=== PATIENT | female | born 1995 | race Caucasian/White ===

== ENCOUNTER 2017-07-27 03:44 | Emergency (ER) | payer OTHER ==
[~2017-07-27] VITALS: Ht 154.9 cm; Wt 81.6 kg
--- OUTSIDE RECORDS SUMMARY | 2017-07-27 03:53 | XMS REPORT ---
Author Author SANGITA ALBERT [facility] eClinicalWorks Address Unknown Phone Unavailable Care Team Providers Care Boiler House Operator Name Role Phone SANGITA ALBERT CP Unavailable Allergies No Known Allergies Problems Problem Type Condition Code Onset Dates Condition Status Problem Scanty or infrequent menstruation 626.1 Active Problem Screening examination for venereal disease V74.5 Active Problem General counseling for prescription of oral contraceptives V25.01 Active Problem Cough 786.2 Active Medications Medication Code System Code Instructions Start Date End Date Status Dosage Sprintec [address] [facility] [address]-87 0.25-35 MG-MCG Orally Once a day 1 tablet Results No Known Results Summary Purpose eClinicalWorks Submission
--- OUTSIDE RECORDS SUMMARY | 2017-07-27 03:53 | XMS REPORT ---
Author SRIKANTH Bird Organization eClinical[employer] Address Unknown Phone Unavailable Care Team Providers [facility] Associate Name Role Phone SRIKANTH PINZON CP Unavailable Allergies, Adverse Reactions, Alerts Substance Reaction Event Type Sulfamethoxazole-Trimethoprim hives Drug Allergy Problems Problem Type Condition Code Onset Dates Condition Status Problem General counseling for prescription of oral contraceptives V25.01 Active Problem Scanty or infrequent menstruation 626.1 Active Problem On Depo-Provera for contraception Z30.40 Active Assessment Encounter for BCP ( control pills) initial prescription Z30.011 Active Problem Screening examination for venereal disease V74.5 Active Problem Cough 786.2 Active Medications Medication Code System Code Instructions Start Date End Date Status Dosage Depo-Provera [facility] [address]-20 150 MG/ML Intramuscular not defined Ortho Tri-Cyclen (28) [facility] [address]-08 0.18/0.215/0.25 MG-35 MCG Orally Once a day Apr 03, 2016 1 tablet Procedures Procedure Coding System Code Date Office Visit, Est Pt., Level 3 CPT-4 41767 Apr 03, 2016 Vital Signs Date/Time: Apr 03, 2016 Cardiac Monitoring Heart Rate 80 bpm Weight 188 lbs Height 61 in Wt Percentile 96.24 % BMI 35.52 Index Blood Pressure Diastolic 80 mmHg Blood Pressure Systolic 112 mmHg BMIPercentile 97.66 % Results No Known Results Summary Purpose eClinicalWorks Submission
[2017-07-27] MEDS ORDERED: AMOX500C2 PO (04:43)
--- NOTE | 2017-07-27 04:43 | ED EENT ---
History of Present Illness General Chief Complaint: Dental Problems/Pain Stated Complaint: DENTAL PAIN Nursing Triage Note: PT PRESENTS TO ER WITH COMPLAINT OF DENTAL PAIN. STATES THE IB PROFEN AND ORAJEL ARE NOT WORKING. UNABLE TO GET IN TO DENTIST. Source: patient Exam Limitations: no limitations History of Present Illness Date Seen by Provider: Jul 27, 2017 Time Seen by Provider: 04:34 Initial Comments Patient presents to ER by private conveyance with a chief complaint that 2 days now she's had progressively worsening pain in her front left tooth that has now radiated all over her upper left maxillary teeth. She's not having any purulence or blood. She has not had any trauma. She is not having any nausea or vomiting or difficulty swallowing fluids. She has a crown there that she thinks is getting crowded since her wisdom teeth are growing in. She [facility] the dentist [facility] and does not have an appointment yet. She has allergies to sulfa. She has been using Orajel which numbs of her mouth. Allergies and Home Medications Allergies Uncoded Allergies: SULFA (Allergy, Unknown, 07/27/17) Home Medications No Active Prescriptions or Reported Meds Patient Home Medication List Home Medication List Reviewed: Yes Review of Systems Constitutional: No chills, No diaphoresis Eyes: Denies Blindness, Denies Blurred Vision Ears: Denies Dizziness, Denies Pain Nose: denies clots, denies congestion Mouth: see HPI Throat: see HPI Respiratory: No cough, No short of breath Past Ddlaytw-Aqvjwm-Yhaybs Hx Patient Social History Alcohol Use: Denies Use Recreational Drug Use: No Smoking Status: Never a Smoker Recent Foreign Travel: No Contact w/Someone Who Travel: No Recent Infectious Disease Expo: No Recent Hopitalizations: No Immunizations Up To Date PED Vaccines UTD: Yes Seasonal Allergies Seasonal Allergies: No Surgeries History of Surgeries: No Respiratory History of Respiratory Disorde: No Cardiovascular History of Cardiac Disorders: No Neurological History of Neurological Disord: No Genitourinary History of Genitourinary Disor: No Gastrointestinal History of Gastrointestinal Di: No Musculoskeletal History of Musculoskeletal Dis: No Endocrine History of Endocrine Disorders: No HEENT History of HEENT Disorders: No Cancer History of Cancer: No Psychosocial History of Psychiatric Problem: No Integumentary History of Skin or Integumenta: No Blood Transfusions History of Blood Disorders: No Physical Exam Vital Signs Vital Signs - First Documented 07/27/17 04:14 Temp 97.0 Pulse 80 Resp 20 B/P (MAP) 117/75 (89) Pulse Ox 100 O2 Delivery Room Air General Appearance: WD/WN, no apparent distress Eyes: bilateral eye normal inspection, bilateral eye PERRL, bilateral eye EOMI Ears: bilateral ear auricle normal, bilateral ear canal normal, bilateral ear TM normal Nose: normal inspection, No active bleeding Mouth/Throat: other (she has a crown in her front 2 teeth. She does not have any evidence of an abscess and is only mildly tender after she just applied some Orajel. Gingivitis and dental caries present) Neck: non-tender, full range of motion, supple Cardiovascular: normal peripheral pulses, regular rate, rhythm Respiratory: no respiratory distress, no accessory muscle use Neurologic/Psychiatric: alert, oriented x 3 Progress/Results/Core Measures Results/Orders Vital Signs/I&O Vital Sign - Last 12Hours 07/27/17 04:14 Temp 97.0 Pulse 80 Resp 20 B/P (MAP) 117/75 (89) Pulse Ox 100 O2 Delivery Room Air Blood Pressure Mean: 89 Departure Impression Impression: Primary Impression: Dental caries Disposition: HOME, SELF-CARE Condition: Stable Departure-Patient Inst. Decision time for Depature: 04:42 Referrals: [facility] (PCP/Family) Primary Care Physician Patient Instructions: Dental Pain (DC) Add. Discharge Instructions: Use the Orajel as needed. Use ibuprofen 800 mg every 8 hours as needed for pain. You can also use Tylenol 1000 mg every 8 hours as needed for pain. 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 This morning call the dentist's office and get an appointment to be seen or dental pain. All discharge instructions reviewed with patient and/or family. Voiced understanding. Scripts Amoxicillin (Amoxicillin) 500 Mg Capsule 500 MG PO TID for 7 Days, #21 CAP 0 Refills Prov: LKAESHA PYLE 07/27/17 Copy Copies To 1: SANGITA ALBERT TITUS J Jul 27, 2017 04:43
[2017-07-27 04:46] VITALS: BP 117/75
== END 2017-07-27 04:46 | disposition home or self-care (01) ==
LOC: ER 03:49
DX: K02.9 Dental caries, unspecified (principal); Z88.2 Allergy status to sulfonamides
CPT/HCPCS: 99282

== ENCOUNTER 2018-07-11 17:17 | Emergency (ER) | payer OTHER ==
[~2018-07-11] VITALS: Ht 154.9 cm; Wt 71.2 kg
[~2018-07-11 17:17] MED LIST: AMOX500C2 PO
--- OUTSIDE RECORDS SUMMARY | 2018-07-11 17:21 | XMS REPORT ---
Author Author GARO SANDHU [facility] Address [address] [place] [address] Care Team Providers Care Department Coordinator Name Role Phone GARO SANDHU Unavailable PROBLEMS Type Condition ICD9-CM Code QXU94-[id number] Code Onset Dates Condition Status SNOMED Code Problem Obesity (BMI 35.0-39.9 without comorbidity) E66.9 Active 811482228 ALLERGIES Substance Reaction Event Type Date Status Sulfamethoxazole-Trimethoprim hives Drug Allergy Jun, Active ENCOUNTERS Encounter Location Date Diagnosis [place] [id number] [place] [address]- [phone] September, Nexplanon insertion Z30.017 [place] [address] [address] Jul, control counseling Z30.09 ; Routine screening for STI (sexually transmitted infection) Z11.3 and Vaginal discharge N89.8 [facility] [id number] [place] [phone] Jun, Dysuria R30.0 and Acute cystitis with hematuria N30.01 [place] [id number] [place] [address] 70383- 7596 Apr, Obesity (BMI 35.0-39.9 without comorbidity) E66.9 [place] [id number] [place] [address] 64464- [phone] Apr, [place] [address] 57[address] Nov, Acute seasonal allergic rhinitis due to pollen J30.1 [place] [id number] [place] [address] 44626- 6255 Mar, Encounter for BCP ( control pills) initial prescription Z30.011 [place] [address] [place] [address] 21956- 2546 05 Feb, 2016 Encounter for other general counseling and advice on procreation Z31.69 ; On Depo-Provera for contraception Z30.40 and Encounter for Depo-Provera contraception Z30.42 [place] [id number] [place] [address] 70998- [phone] 08 Jun, 2015 [place] [id number] [place] [address] 75745- 2546 Dec, Vaginal pain 625.9 ; Screening examination for venereal disease V74.5 and Dysuria 788.1 [place] [id number] [place] [address] 75818- [phone] Aug, [place] [id number] [place] [address] 51018- [phone] Jul, [place] [id number] [place] [address] 53346- [phone] Jul, [place] [id number] [place] [address] 99667- [phone] Nov, [place] [id number] [place] [address] 17570- [phone] September, [place] [id number] [place] [address] 82260- [phone] Jun, [place] [id number] [place] [address] 08985- [phone] May, IMMUNIZATIONS No Known Immunizations SOCIAL HISTORY Never Assessed REASON FOR VISIT dysuria, frequency, and also reports blood with urination. been like this since she woke up this am...maybe an hour. [email or web address] PLAN OF CARE Activity Details Follow Up prn Reason: VITAL SIGNS Height 61 in 2017-06-19 Weight 185.9 lbs 2017-06-19 Temperature 98.6 degrees Fahrenheit 2017-06-19 Heart Rate 74 bpm 2017-06-19 Respiratory Rate 20 2017-06-19 BMI 35.12 kg/m2 2017-06-19 Blood pressure systolic 116 mmHg 2017-06-19 Blood pressure diastolic 70 mmHg 2017-06-19 MEDICATIONS Medication Instructions Dosage Frequency Start Date End Date Duration Status Ortho Tri-Cyclen (28) 0.18/0.215/0.25 MG-35 MCG Orally Once a day 1 tablet 24h Mar, 28 day(s) Not-Taking Fluticasone Propionate 50 MCG/ACT Nasally Once a day 1 spray in each nostril 24h Nov, 12 months Not-Taking Macrobid 100 MG Orally every 12 hrs 1 capsule with food 12h Jun, Jun, 7 day(s) Active RESULTS No Results PROCEDURES Procedure Date Ordered Result Body Site URINALYSIS, AUTO, W/O SCOPE Jun 19, 2017 URINE CULTURE/COLONY COUNT Jun 19, 2017 INSTRUCTIONS MEDICATIONS ADMINISTERED No Known Medications
--- OUTSIDE RECORDS SUMMARY | 2018-07-11 17:21 | XMS REPORT ---
Author Author CLEVE Castro Organization [facility] Address [address] [place] [address] Care Team Providers Care Continuing Education Director Name Role Phone CLEVE Castro Unavailable PROBLEMS Type Condition ICD9-CM Code [id number] Code Onset Dates Condition Status SNOMED Code Problem Obesity (BMI 35.0-39.9 without comorbidity) E66.9 Active 372383006 ALLERGIES Substance Reaction Event Type Date Status Sulfamethoxazole-Trimethoprim hives Drug Allergy Jul, Active ENCOUNTERS Encounter Location Date Diagnosis [place] [id number] [place] [address] 14762- [phone] September, Nexplanon insertion Z30.017 [place] [id number] [place] [address] 36568- 2334 Jul, control counseling Z30.09 ; Routine screening for STI (sexually transmitted infection) Z11.3 and Vaginal discharge N89.8 [facility] [id number] [place] [phone] -[phone] Jun, Dysuria R30.0 and Acute cystitis with hematuria N30.01 [place] [id number] [place] [address] 87454- [phone] Apr, Obesity (BMI 35.0-39.9 without comorbidity) E66.9 [place] [address] 10[address]- 7682 Apr, [place] [address] 26320- 7232 Nov, Acute seasonal allergic rhinitis due to pollen J30.1 [place] [address] 06446- 0590 Mar, Encounter for BCP ( control pills) initial prescription Z30.011 [place] [id number] [place] [address] [phone]- [phone] 05 Feb, 2016 Encounter for other general counseling and advice on procreation Z31.69 ; On Depo-Provera for contraception Z30.40 and Encounter for Depo-Provera contraception Z30.42 [place] [address] [address] 2546 08 Jun, 2015 [place] [id number] [place] [address] 36752- 2546 Dec, Vaginal pain 625.9 ; Screening examination for venereal disease V74.5 and Dysuria 788.1 [place] [id number] [place] [address] 79421- [phone] Aug, [place] [id number] [place] [address] 33769- [phone] Jul, [place] [id number] [place] [address] 65283- [phone] Jul, [place] [id number] [place] [address] 64212- [phone] Nov, [place] [id number] [place] [address] 46624- [phone] September, [place] [id number] [place] [address] 44551- [phone] Jun, [place] [id number] [place] [address] 66072- [phone] May, IMMUNIZATIONS No Known Immunizations SOCIAL HISTORY Never Assessed REASON FOR VISIT control consult, PT is interested in Shawna DEAN PLAN OF CARE Activity Details Follow Up referral for brayden Reason: VITAL SIGNS Height 61 in 2017-07-30 Weight 187.8 lbs 2017-07-30 Temperature 98.7 degrees Fahrenheit 2017-07-30 Heart Rate 76 bpm 2017-07-30 Respiratory Rate 18 2017-07-30 BMI 35.48 kg/m2 2017-07-30 Blood pressure systolic 122 mmHg 2017-07-30 Blood pressure diastolic 72 mmHg 2017-07-30 MEDICATIONS Medication Instructions Dosage Frequency Start Date End Date Duration Status Fluticasone Propionate 50 MCG/ACT Nasally Once a day 1 spray in each nostril 24h Nov, 12 months Not-Taking Amoxicillin Active Ortho Tri-Cyclen (28) 0.18/0.215/0.25 MG-35 MCG Orally Once a day 1 tablet 24h Mar, 28 day(s) Not-Taking RESULTS No Results PROCEDURES Procedure Date Ordered Result Body Site URINE TEST July 30, 2017 Bacterial Vaginosis In House July 30, 2017 CHYLMD TRACH, DNA, AMP PROBE July 30, 2017 TRICHOMONAS ASSAY W/OPTIC July 30, 2017 CULTURE, BACTERIA, OTHER July 30, 2017 N.GONORRHOEAE, DNA, AMP PROB July 30, 2017 INSTRUCTIONS MEDICATIONS ADMINISTERED No Known Medications
--- OUTSIDE RECORDS SUMMARY | 2018-07-11 17:21 | XMS REPORT ---
Author Author STEPHANIE RIZO [facility] Address [address] [place] [address] Care Team Providers Care Senior Geotechnical Engineer Name Role Phone STEPHANIE RIZO Unavailable PROBLEMS Type Condition ICD9-CM Code DTS62-RY Code Onset Dates Condition Status SNOMED Code Problem Obesity (BMI 35.0-39.9 without comorbidity) E66.9 Active 040953941 ALLERGIES Substance Reaction Event Type Date Status Sulfamethoxazole-Trimethoprim hives Drug Allergy September, Active ENCOUNTERS Encounter Location Date Diagnosis [address] [address] September, Nexplanon insertion Z30.[address] 27887- [address]161 Jul, control counseling Z30.09 ; Routine screening for STI (sexually transmitted infection) Z11.3 and Vaginal discharge N89.8 [facility] [id number] [place] [phone] -[phone] Jun, Dysuria R30.0 and Acute cystitis with hematuria N30.01 [facility] [address] [place] [id number] [place] [address] 63454- [phone] Apr, Obesity (BMI 35.0-39.9 without comorbidity) E66.9 [facility] [address] [place] [id number] [place] [address] 73006- [phone] Apr, [address] 01208- [address]696 Nov, Acute seasonal allergic rhinitis due to pollen J30.[address] [address]47- [address] Mar, Encounter for BCP ( control pills) initial prescription Z30.011 [facility] [id number] [place] [address] [phone] Feb, Encounter for other general counseling and advice on procreation Z31.69 ; On Depo-Provera for contraception Z30.40 and Encounter for Depo-Provera contraception Z30.42 [place] [id number] [place] [address] 82949- [phone] 08 Jun, 2015 [place] [id number] [place] [address] [phone]- [phone] Dec, Vaginal pain 625.9 ; Screening examination for venereal disease V74.5 and Dysuria 788.1 [place] [id number] [place] [address] 48023- 1475 Aug, [place] [id number] [place] [address] 15672- [phone] Jul, [place] [id number] [place] [address] [phone]- [phone] Jul, [place] [id number] [place] [address] [phone] Nov, [place] [id number] [place] [address] 49044- [phone] September, [place] [id number] [place] [address] 07621- 2210 Jun, [place] [id number] [place] [address] 69020- [phone] May, IMMUNIZATIONS No Known Immunizations SOCIAL HISTORY Never Assessed REASON FOR VISIT Nexplanon insertion -- marie mustafa, consent signed PLAN OF CARE Activity Details Follow Up prn Reason: VITAL SIGNS Height 61 in 2017-09-21 Weight 173.0 lbs 2017-09-21 Temperature 98.1 degrees Fahrenheit 2017-09-21 Heart Rate 66 bpm 2017-09-21 Respiratory Rate 18 2017-09-21 BMI 32.68 kg/m2 2017-09-21 Blood pressure systolic 104 mmHg 2017-09-21 Blood pressure diastolic 64 mmHg 2017-09-21 MEDICATIONS Medication Instructions Dosage Frequency Start Date End Date Duration Status Nexplanon 68 MG Subcutaneous Placed 09/21/2017 as directed September, Active RESULTS Name Result Date Reference Range TEST, URINE (IN HOUSE) 2017-09-21 RESULTS negative Lot # [id number] Control + Exp date 04/2019 PROCEDURES Procedure Date Ordered Result Body Site URINE TEST September 21, 2017 INSERT DRUG IMPLANT DEVICE September 21, 2017 INSTRUCTIONS MEDICATIONS ADMINISTERED No Known Medications
--- OUTSIDE RECORDS SUMMARY | 2018-07-11 17:22 | XMS REPORT ---
Author Author EDVIN SAAVEDRA [facility] Address [address] [place] [address] Care Team Providers Care Digital Media Buyer Name Role Phone EDVIN SAAVEDRA Unavailable PROBLEMS Type Condition ICD9-CM Code WBE28-TE Code Onset Dates Condition Status SNOMED Code Problem Obesity (BMI 35.0-39.9 without comorbidity) E66.9 Active 395750992 ALLERGIES Substance Reaction Event Type Date Status Sulfamethoxazole-Trimethoprim hives Drug Allergy Apr, Active ENCOUNTERS Encounter Location Date Diagnosis [place] [id number] [place] [address] 22571- 9752 September, Nexplanon insertion Z30.017 [place] [id number] [place] [address] 89558- [phone] Jul, control counseling Z30.09 ; Routine screening for STI (sexually transmitted infection) Z11.3 and Vaginal discharge N89.8 [facility] [id number] [place] [address] 79427 -[phone] Jun, Dysuria R30.0 and Acute cystitis with hematuria N30.01 [facility] [address] [place], [place] [id number] [place] [address] 79703- 1558 Apr, Obesity (BMI 35.0-39.9 without comorbidity) E66.9 [facility] [address] [place], [place] [id number] [place] [address] 39659- 3525 Apr, [address] 17367- 8337 Nov, Acute seasonal allergic rhinitis due to pollen J30.1 [place] [address] [id number] [place] [address] 23618- [phone] Mar, Encounter for BCP ( control pills) initial prescription Z30.011 [place] [address] [place] [address] [phone]- [phone] 05 Feb, 2016 Encounter for other general counseling and advice on procreation Z31.69 ; On Depo-Provera for contraception Z30.40 and Encounter for Depo-Provera contraception Z30.42 [place] [address] [id number] [place] [address] 17579- [phone] 08 Jun, 2015 [place] [id number] [place] [address] [phone] Dec, Vaginal pain 625.9 ; Screening examination for venereal disease V74.5 and Dysuria 788.1 [place] [id number] [place] [address] [phone] Aug, [place] [id number] [place] [address] 86953- [phone] Jul, [place] [id number] [place] [address] 05685- 2756 Jul, [place] [id number] [place] [address] 65056- 9625 Nov, [place] [id number] [place] [address] 50108- [phone] September, [place] [id number] [place] [address] [phone]- [phone] Jun, [place] [address] [id number] [place] [address] 61757- [phone] May, IMMUNIZATIONS No Known Immunizations SOCIAL HISTORY Never Assessed REASON FOR VISIT PMH obtained. Blanquita DOYLE PLAN OF CARE VITAL SIGNS MEDICATIONS Medication Instructions Dosage Frequency Start Date End Date Duration Status Ortho Tri-Cyclen (28) 0.18/0.215/0.25 MG-35 MCG Orally Once a day 1 tablet 24h Mar, 28 day(s) Not-Taking Fluticasone Propionate 50 MCG/ACT Nasally Once a day 1 spray in each nostril 24h Nov, 12 months Not-Taking RESULTS No Results PROCEDURES No Known procedures INSTRUCTIONS MEDICATIONS ADMINISTERED No Known Medications
--- OUTSIDE RECORDS SUMMARY | 2018-07-11 17:22 | XMS REPORT | Continuity of Care Document ---
Author Author [facility] Address Unknown Phone Unavailable Allergies Active Description Code Type Severity Reaction Onset Reported/Identified Relationship to Patient Clinical Status Yes SULFA SULFA Unknown N/A 07/27/2017 Medications There is no data. Problems Date Dx Coded Attending Type Code Diagnosis Diagnosed By 06/05/2012 786.2 cough 06/05/2012 SANGITA ALBERT DO 786.2 cough 06/05/2012 786.2 cough 06/14/2012 SANGITA ALBERT DO 626.1 OLIGOMENORRHEA 06/14/2012 SANGITA ALBERT DO V25.01 CONTRACEPTION - ORAL CONTRACEPTION 06/14/2012 626.1 OLIGOMENORRHEA 06/14/2012 V25.01 CONTRACEPTION - ORAL CONTRACEPTION 07/27/2017 EDENILSON MITCHELL, LAKESHA J Ot K02.9 DENTAL CARIES, UNSPECIFIED 07/27/2017 EDENILSON MITCHELL, LAKESHA J Ot K08.89 OTHER SPECIFIED DISORDERS OF TEETH AND S 07/27/2017 EDENILSON MITCHELL, LAKESHA J Ot Z88.2 ALLERGY STATUS TO SULFONAMIDES STATUS Procedures There is no data. Results Test Result Range TSH - 04/23/17 10:46 TSH 2.54 mIU/L NRG CULTURE, URINE - 06/19/17 08:27 CULTURE, URINE, ROUTINE SEE NOTE NRG Encounters ACCT No. Visit Date/Time Discharge Status Pt. Type Provider Facility Loc./Unit Complaint [id number] 06/14/2012 14:38:00 06/14/2012 23:59:59 CLS Outpatient SANGITA ALBERT DO [id number] 06/05/2012 15:56:00 06/05/2012 23:59:59 CLS Outpatient [id number] 11/05/2012 16:31:00 Document Registration [id number] 09/21/2017 10:00:00 09/21/2017 23:59:59 C[facility] [id number] 06/19/2017 08:20:00 Document Registration [id number] 04/23/2017 10:00:00 Document Registration [id number] 07/27/2017 03:49:00 07/27/2017 04:46:00 DIS Chioma PYLE MD, LAKESHA Larios [facility] ER DENTAL PAIN
--- OUTSIDE RECORDS SUMMARY | 2018-07-11 17:22 | XMS REPORT ---
Author Author EDVIN SAAVEDRA [facility] Address [address] [place] [address] Care Team Providers Care Cafe Helper Name Role Phone EDVIN SAAVEDRA Unavailable PROBLEMS Type Condition ICD9-CM Code GEP34-ZW Code Onset Dates Condition Status SNOMED Code Problem Obesity (BMI 35.0-39.9 without comorbidity) E66.9 Active [id number] ALLERGIES Substance Reaction Event Type Date Status Sulfamethoxazole-Trimethoprim hives Drug Allergy Apr, Active ENCOUNTERS Encounter Location Date Diagnosis [place] [id number] [place] [phone] September, Nexplanon insertion Z30.017 [place] [id number] [place] [address] [phone] Jul, control counseling Z30.09 ; Routine screening for STI (sexually transmitted infection) Z11.3 and Vaginal discharge N89.8 [facility] [id number] [place] [phone] Jun, Dysuria R30.0 and Acute cystitis with hematuria N30.01 [facility] [place] [address] [place] [place] [id number] [place] [address] [phone] Apr, Obesity (BMI 35.0-39.9 without comorbidity) E66.9 [facility] [place] [address] [place], [place] [id number] [place] [phone] Apr, [address] [phone] Nov, Acute seasonal allergic rhinitis due to pollen J30.1 [place] [id number] [place] [address] [phone] Mar, Encounter for BCP ( control pills) initial prescription Z30.011 [place] [id number] [place] [address] [phone] Feb, 2016 Encounter for other general counseling and advice on procreation Z31.69 ; On Depo-Provera for contraception Z30.40 and Encounter for Depo-Provera contraception Z30.42 [place] [id number] [place] [address] [phone] 08 Jun, 2015 [place] [id number] [place] [address] [phone] Dec, Vaginal pain 625.9 ; Screening examination for venereal disease V74.5 and Dysuria 788.1 [place] [id number] [place] [address] [phone] Aug, [place] [id number] [place] [address] [phone] Jul, [place] [id number] [place] [address] [phone] Jul, [place] [id number] [place] [address] [phone] Nov, [place] [id number] [place] [address] [phone] September, [place] [id number] [place] [address] [phone] Jun, [place] [id number] [place] [address] [phone] May, IMMUNIZATIONS No Known Immunizations SOCIAL HISTORY Never Assessed REASON FOR VISIT Establish Care----Pao weight management PLAN OF CARE Activity Details Follow Up prn Reason: VITAL SIGNS Height 61 in 2017-04-23 Weight 186 lbs 2017-04-23 Temperature 99.0 degrees Fahrenheit 2017-04-23 Heart Rate 70 bpm 2017-04-23 Respiratory Rate 20 2017-04-23 BMI 35.14 kg/m2 2017-04-23 Blood pressure systolic 104 mmHg 2017-04-23 Blood pressure diastolic 68 mmHg 2017-04-23 MEDICATIONS Medication Instructions Dosage Frequency Start Date End Date Duration Status Ortho Tri-Cyclen (28) 0.18/0.215/0.25 MG-35 MCG Orally Once a day 1 tablet 24h Mar, 28 day(s) Not-Taking Fluticasone Propionate 50 MCG/ACT Nasally Once a day 1 spray in each nostril 24h Nov, 12 months Not-Taking Contrave 8-90 MG Orally Twice a day 1 tab daily x 1 week, then 1tab BID x 1 week, then 2 tabs in AM and 1 in PM X 1 week, then 2 tabs BID 12h Apr, May, 30 day(s) Active RESULTS No Results PROCEDURES Procedure Date Ordered Result Body Site ASSAY THYROID STIM HORMONE Apr 23, 2017 VENIPUNCT, ROUTINE* Apr 23, 2017 INSTRUCTIONS MEDICATIONS ADMINISTERED No Known Medications
[2018-07-11 18:06] LABS: BASOPHILS % (AUTO) 0 % (0-10); EOSINOPHILS # (AUTO) 0.1 10^3/uL (0.0-0.3); EOSINOPHILS % (AUTO) 1 % (0-10); HEMATOCRIT 41 % (35-52); HEMOGLOBIN 13.9 G/DL (11.5-16.0); LYMPHOCYTES # (AUTO) 2.8 X 10^3 (1.0-4.0); LYMPHOCYTES % (AUTO) 30 % (12-44); MEAN CORPUSCULAR HEMOGLOBIN 26 PG (25-34); MEAN CORPUSCULAR HGB CONC 34 G/DL (32-36); MEAN CORPUSCULAR VOLUME 76 FL (80-99); MEAN PLATELET VOLUME 11.1 FL (7.4-10.4); MONOCYTES # (AUTO) 0.4 X 10^3 (0.0-1.0); MONOCYTES % (AUTO) 5 % (0-12); NEUTROPHILS # (AUTO) 6.1 X 10^3 (1.8-7.8); NEUTROPHILS % (AUTO) 64 % (42-75); PLATELET COUNT 285 10^3/uL (130-400); RED CELL DISTRIBUTION WIDTH 13.1 % (10.0-14.5); WHITE BLOOD COUNT 9.5 10^3/uL (4.3-11.0)
[2018-07-11 18:28] LABS: BILIRUBIN,URINE NEGATIVE (NEGATIVE); CLARITY,URINE CLEAR; COLOR,URINE YELLOW; GLUCOSE, URINE (UA) NEGATIVE (NEGATIVE); KETONES,URINE NEGATIVE (NEGATIVE); LEUKOCYTE ESTERASE ,URINE NEGATIVE (NEGATIVE); NITRITE,URINE NEGATIVE (NEGATIVE); PH,URINE 6.5 (5-9); PROTEIN,URINE NEGATIVE (NEGATIVE); UROBILINOGEN,URINE NORMAL (NORMAL)
[2018-07-11 18:31] LABS: ALANINE AMINOTRANSFERASE 12 U/L (0-55); ALBUMIN 4.5 GM/DL (3.2-4.5); ALKALINE PHOSPHATASE 56 U/L (40-136); BILIRUBIN,TOTAL 0.3 MG/DL (0.1-1.0); BUN/CREATININE RATIO 12; CALCIUM 9.5 MG/DL (8.5-10.1); CARBON DIOXIDE 25 MMOL/L (21-32); CHLORIDE 107 MMOL/L (98-107); CREATININE SERUM 0.83 MG/DL (0.60-1.30); GFR ESTIMATED > 60; GLUCOSE 83 MG/DL (70-105); MAGNESIUM 2.1 MG/DL (1.8-2.4); POTASSIUM 3.9 MMOL/L (3.6-5.0); SODIUM 141 MMOL/L (135-145); TOTAL PROTEIN 7.3 GM/DL (6.4-8.2)
[2018-07-11 18:40] LABS: MYOGLOBIN SERUM 21.2 NG/ML (10.0-92.0)
[2018-07-11 18:49] LABS: BACTERIA,URINE TRACE /HPF; SQUAMOUS EPITHELIAL CELL,UR RARE /HPF
--- NOTE | 2018-07-11 19:00 | NUR ---
Zach grijalva in ED - 07/11/18 at 1901 by HLGIMAYA ASSUMED CARE OF PT THIS TIME.
--- NOTE | 2018-07-11 19:03 | Diagnostic Imaging Report ---
INDICATION: Chest pain. COMPARISON: None. EXAMINATION: Frontal and lateral views of the chest were obtained. FINDINGS: Normal heart size and pulmonary vascularity. The lungs are clear. There are no signs of infiltrate, pleural effusions or pneumothoraces. The visualized osseous structures show no acute abnormalities. IMPRESSION: No acute process. No signs of infiltrates, effusions or pneumothoraces. Dictated by: Dictated on workstation # [id number]
[2018-07-11] MEDS ORDERED: KETOROLAC 60 MG/2 ML VIAL IM STA (19:08)
[2018-07-11] MEDS ORDERED: FAMOTIDINE 20 MG (PEPCID) TABLET PO STA (19:08)
--- NOTE | 2018-07-11 19:08 | ED Chest Pain ---
General Chief Complaint: Chest Wall/Rib Pain Stated Complaint: CP Nursing Triage Note: pt presents to ed with complaints of dull aching cp that is l sided and down the middle x 2 days Nursing Sepsis Screen: No Definite Risk History of Present Illness Date Seen by Provider: Jul 11, 2018 Time Seen by Provider: 17:45 Initial Comments 23-year-old female presents for left chest pain, she points to the midsternal region and states that it extends to her umbilicus. The pain began yesterday and she's had it intermittently since then. She noted it after drinking a red bull yesterday and after coffee today. But she is also had it when not drinking caffeine products. She has a history of GERD in the past and is not currently on medication for that. She also has anxiety which she prefers to not be treated for. She denies any new stressors in her life. She does report having a cold approximately 2 weeks ago with significant coughing. She does not currently express that she is experiencing the symptoms. However they occurred at work today and her boss told her to come here. 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 NTG SL WINDOWS PHONE DEVELOPER: No Associated Symptoms: denies symptoms; No back pain, No diaphoresis, No fever/ chills, No heartburn, No nausea/vomiting, No shortness of breath, No syncope, No weakness Allergies and Home Medications Allergies Uncoded Allergies: SULFA (Allergy, Unknown, 07/27/17) Home Medications No Active Prescriptions or Reported Meds Patient Home Medication List Home Medication List Reviewed: Yes Review of Systems Review of Systems Constitutional: no symptoms reported, see HPI Cardiovascular: See HPI, Chest Pain All Other Systems Reviewed Negative Unless Noted: Yes Past Fkpkpsn-Gamlnz-Mpubjs Hx Past Med/Social Hx: Reviewed Nursing Past Med/Soc Hx Patient Social History Alcohol Use: Denies Use Recreational Drug Use: No Smoking Status: Current Everyday Smoker Type Used: Cigarettes Recent Foreign Travel: No Contact w/Someone Who Travel: No Recent Infectious Disease Expo: No Recent Hopitalizations: No Physical Abuse: No Sexual Abuse: No Mistreated: No Fear: No Immunizations Up To Date PED Vaccines UTD: Yes Seasonal Allergies Seasonal Allergies: No Past Medical History Surgeries: No Respiratory: No Cardiac: No Neurological: No Genitourinary: No Gastrointestinal: No Musculoskeletal: No Endocrine: No HEENT: No Cancer: No Psychosocial: No Integumentary: No Blood Disorders: No Physical Exam Vital Signs Vital Signs - First Documented 07/11/18 07/11/18 17:40 20:36 Temp 100.5 Pulse 85 Resp 20 B/P (MAP) 140/85 (103) Pulse Ox 100 O2 Delivery Room Air Capillary Refill : Less Than 3 Seconds Height, Weight, BMI Height: 5'1.00" Weight: 157lbs. oz. 71.424171my; BMI Method:Stated General Appearance: No Apparent Distress, WD/WN HEENT: PERRL/EOMI, TMs Normal, Normal ENT Inspection, Pharynx Normal Neck: Full Range of Motion, Normal Inspection, Non Tender, Supple Respiratory: Lungs Clear, Normal Breath Sounds, No Accessory Muscle Use, No Respiratory Distress, Other (trace tenderness to palpation on the left anterior and lateral chest) Cardiovascular: Regular Rate, Rhythm, No Edema, No Murmur, Normal Peripheral Pulses Gastrointestinal: Normal Bowel Sounds, No Pulsatile Mass, Non Tender, Soft Extremity: Normal Capillary Refill, Normal Inspection, Normal Range of Motion, No Pedal Edema Neurologic/Psychiatric: Alert, Oriented x3, No Motor/Sensory Deficits, Normal Mood/Affect Skin: Normal Color, Warm/Dry Lymphatic: No Adenopathy Progress/Results/Core Measures Results/Orders Lab Results Laboratory Tests Test 07/11/18 17:56 07/11/18 18:18 Range/Units White Blood Count 9.5 4.3-11.0 10^3/uL Red Blood Count 5.35 4.35-5.85 10^6/uL Hemoglobin 13.9 11.5-16.0 G/DL Hematocrit 41 35-52 % Mean Corpuscular Volume 76 L 80-99 FL Mean Corpuscular Hemoglobin 26 25-34 PG Mean Corpuscular Hemoglobin Concent 34 32-36 G/DL Red Cell Distribution Width 13.1 10.0-14.5 % Platelet Count 285 130-400 10^3/uL Mean Platelet Volume 11.1 H 7.4-10.4 FL Neutrophils (%) (Auto) 64 42-75 % Lymphocytes (%) (Auto) 30 12-44 % Monocytes (%) (Auto) 5 0-12 % Eosinophils (%) (Auto) 1 0-10 % Basophils (%) (Auto) 0 0-10 % Neutrophils # (Auto) 6.1 1.8-7.8 X 10^3 Lymphocytes # (Auto) 2.8 1.0-4.0 X 10^3 Monocytes # (Auto) 0.4 0.0-1.0 X 10^3 Eosinophils # (Auto) 0.1 0.0-0.3 10^3/uL Basophils # (Auto) 0.0 0.0-0.1 10^3/uL Prothrombin Time 13.0 12.2-14.7 SEC INR Comment 1.0 0.8-1.4 Activated Partial Thromboplast Time 32 24-35 SEC Sodium Level 141 135-145 MMOL/L Potassium Level 3.9 3.6-5.0 MMOL/L Chloride Level 107 98-107 MMOL/L Carbon Dioxide Level 25 21-32 MMOL/L Anion Gap 9 5-14 MMOL/L Blood Urea Nitrogen 10 7-18 MG/DL Creatinine 0.83 0.60-1.30 MG/DL Estimat Glomerular Filtration Rate > 60 BUN/Creatinine Ratio 12 Glucose Level 83 70-105 MG/DL Calcium Level 9.5 8.5-10.1 MG/DL Corrected Calcium 9.1 8.5-10.1 MG/DL Magnesium Level 2.1 1.8-2.4 MG/DL Total Bilirubin 0.3 0.1-1.0 MG/DL Aspartate Amino Transf (AST/SGOT) 16 5-34 U/L Alanine Aminotransferase (ALT/SGPT) 12 0-55 U/L Alkaline Phosphatase 56 40-136 U/L Myoglobin 21.2 10.0-92.0 NG/ML Troponin I < 0.028 <0.028 NG/ML Total Protein 7.3 6.4-8.2 GM/DL Albumin 4.5 3.2-4.5 GM/DL Urine Color YELLOW Urine Clarity CLEAR Urine pH 6.5 5-9 Urine Specific [place] 1.010 L 1.016-1.022 Urine Protein NEGATIVE NEGATIVE Urine Glucose (UA) NEGATIVE NEGATIVE Urine Ketones NEGATIVE NEGATIVE Urine Nitrite NEGATIVE NEGATIVE Urine Bilirubin NEGATIVE NEGATIVE Urine Urobilinogen NORMAL NORMAL MG/DL Urine Leukocyte Esterase NEGATIVE NEGATIVE Urine RBC (Auto) NEGATIVE NEGATIVE Urine RBC NONE /HPF Urine WBC NONE /HPF Urine Squamous Epithelial Cells RARE /HPF Urine Crystals NONE /LPF Urine Bacteria TRACE /HPF Urine Casts NONE /LPF Urine Mucus NEGATIVE /LPF Urine Culture Indicated NO Micro Results Microbiology 07/11/18 Influenza Types A,B Antigen (SIL) - Final, Complete My Orders Orders - CHRISTOPHER LEGER HERI Cbc With Automated Diff (07/11/18 17:49) Magnesium (07/11/18 17:49) Ekg Tracing (07/11/18 17:49) Cardiac Profile 1 (07/11/18 17:49) Comprehensive Metabolic Panel (07/11/18 17:49) Myoglobin Serum (07/11/18 17:49) Protime With Inr (07/11/18 17:49) Partial Thromboplastin Time (07/11/18 17:49) Monitor-Rhythm Ecg Trace Only (07/11/18 17:49) Saline Lock/Iv-Start (07/11/18 17:49) Ua Culture If Indicated (07/11/18 17:49) Influenza A And B Antigens (07/11/18 17:49) Chest Pa/Lat (2 View) (07/11/18 17:58) Famotidine Tablet (Pepcid Tablet) (07/11/18 19:08) Ketorolac Injection (Toradol Injection) (07/11/18 19:11) Vital Signs/I&O 07/11/18 07/11/18 17:40 20:36 Temp 100.5 100.5 Pulse 85 69 Resp 20 17 B/P (MAP) 140/85 (103) 123/86 (98) Pulse Ox 100 99 O2 Delivery Room Air Blood Pressure Mean: 103 Progress Progress Note : Time: 17:45 Progress Note Patient seen and evaluated, will obtain labs, EKG and chest x-ray. 1829 discussed with patient, exam findings and labs or leaning towards pleurisy or costochondritis. We will give ketorolac 30 mg IV and Pepcid 20 mg by mouth for GERD. 1999 patient reports symptoms have improved slightly. Discharge instructions and return precautions reviewed with her. Initial ECG Impression Date: Jul 11, 2018 Initial ECG Impression Time: 17:36 Initial ECG Rate: 70 Initial ECG Rhythm: Normal Sinus Initial ECG Intervals: Normal Initial ECG Intervals GA 156, QRSD 100, QT 380, QTC 410. [place] P 64, QRS 59, T 46. Initial ECG Impression: Normal Comment Reviewed with Dr. Patel, concurred with interpretation. Diagnostic Imaging Diagonstic Imaging: Xray Plain Films/CT/US/NM/MRI: chest Comments NAME: DIONY KEYS MED REC#: [id number] PT STATUS: REG ER : 1995 PHYSICIAN: CHRISTOPHER LEGER ADMIT DATE: 07/11/18/ER Draft Date of Exam:07/11/18 CHEST PA/LAT (2 VIEW) INDICATION: Chest pain. COMPARISON: None. EXAMINATION: Frontal and lateral views of the chest were obtained. FINDINGS: Normal heart size and pulmonary vascularity. The lungs are clear. There are no signs of infiltrate, pleural effusions or pneumothoraces. The visualized osseous structures show no acute abnormalities. IMPRESSION: No acute process. No signs of infiltrates, effusions or pneumothoraces. Dictated on workstation # [id number] Dict: 07/11/18 190 Trans: 07/11/181901 [facility] [id number] Interpreted by: AMELIA BORDEN MD Electronically signed by: Reviewed: Reviewed by Me Departure Impression Primary Impression: Acute costochondritis Additional Impression: Pleurisy Disposition: 01 HOME, SELF-CARE Condition: Improved Departure-Patient Inst. Decision time for Depature: 20:00 Referrals: [facility] (PCP/Family) Primary Care Physician Patient Instructions: Costochondritis (DC), Pleuritic Chest Pain (DC) Add. Discharge Instructions: Take ibuprofen 600 mg every 8 hours. Warm moist compresses to left ribs. Follow-up with your primary care provider if symptoms are not improving or worsen. Return to emergency department for increasing chest pain that doesn't improve, difficulty breathing, fever greater than 100 degrees, or new concerns. All discharge instructions reviewed with patient and/or family. Voiced understanding. Scripts No Active Prescriptions or Reported Meds CHRISTOPHER LEGER Jul 11, 2018 19:08
[2018-07-11] MEDS ORDERED: KETOROLAC 30 MG/ML VIAL IVP STA (19:11)
[2018-07-11 20:36] VITALS: BP 123/86
== END 2018-07-11 20:36 | disposition home or self-care (01) ==
LOC: EDUNIT# 17:17 → ER 17:18
DX: M94.0 Chondrocostal junction syndrome [Tietze] (principal); R09.1 Pleurisy; K21.9 Gastro-esophageal reflux disease without esophagitis; F17.210 Nicotine dependence, cigarettes, uncomplicated; Z88.2 Allergy status to sulfonamides
CPT/HCPCS: 36415; 71046; 80053; 81000; 83735; 83874; 84484; 85025; 85610; 85730; 87804; 93005; 93041

== ENCOUNTER 2022-02-04 20:55 | Emergency (ER) | payer SELFPAY ==
[~2022-02-04] VITALS: Ht 63 cm; Wt 70.4 kg
[2022-02-04] MEDS ORDERED: TETANUS,DIPTH,PERTUSS P/F (BOOSTRIX) 0.5 ML VIAL IM ONE (21:30)
[2022-02-04] MEDS ORDERED: LIDOCAINE 1% INJ 10 ML VIAL INJ ONE (21:30)
[2022-02-04] MEDS ORDERED: CEPH500C PO (21:32)
--- NOTE | 2022-02-04 21:33 | ED Upper Extremity ---
General Chief Complaint: Laceration Stated Complaint: L HAND FINGER LAC Nursing Triage Note: PT comed to ED with a left pinky laceration. 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 PT had pinky/laceration covered with towel. PT's cut is currentely not bleeding. Estimated laceration length is about 1 inch. Source: patient, other Exam Limitations: no limitations History of Present Illness Date Seen by Provider: Feb 04, 2022 Time Seen by Provider: 21:16 Initial Comments Patient to the ER by private conveyance with significant other chief complaint that they sustained a laceration from a vegetable brice to the dorsum of the fifth digit left hand distal interphalangeal joint. No loss of range of motion or sensation. Not up-to-date on tetanus vaccine. Allergies and Home Medications Allergies Uncoded Allergies: SULFA (Allergy, Unknown, 07/27/17) Patient Home Medication List Home Medication List Reviewed: Yes Cephalexin (Cephalexin) 500 Mg Capsule, 500 MG PO TID Prescribed by: LAKESHA PYLE on 02/04/222131 Review of Systems Constitutional: No chills, No fever EENTM: No ear discharge, No ear pain Respiratory: No cough, No short of breath Cardiovascular: No chest pain, No edema Gastrointestinal: No abdominal pain, No nausea Genitourinary: No discharge, No dysuria All Other Systems Reviewed Negative Unless Noted: Yes Past Vntfaru-Cznhkz-Afmmxs Hx Patient Social History Tobacco Use?: Yes Use of E-Cig and/or Vaping dev: Yes E-Cig or Vaping type used: Nicotine Substance use?: No Alcohol Use?: Yes Alcohol Frequency: Rarely Pt feels they are or have been: No Immunizations Up To Date PED Vaccines UTD: Yes Seasonal Allergies Seasonal Allergies: No Past Medical History Surgery/Hospitalization HX: pmh: takes testosterone Surgeries: No Respiratory: No Cardiac: No Neurological: No Genitourinary: No Gastrointestinal: No Musculoskeletal: No Endocrine: No HEENT: No Cancer: No Psychosocial: No Integumentary: No Blood Disorders: No Physical Exam Vital Signs Vital Signs - First Documented 02/04/22 21:01 Temp 36.2 Pulse 79 Resp 18 B/P (MAP) 104/69 (81) Pulse Ox 99 O2 Delivery Room Air Capillary Refill : Less Than 3 Seconds Height, Weight, BMI Height: 5'1.00" Weight: 157lbs. oz. 71.877107kl; 177.00 BMI Method:Stated General Appearance: WD/WN, no apparent distress HEENT: PERRL/EOMI, pharynx normal Neck: full range of motion, normal inspection Cardiovascular: normal peripheral pulses, regular rate, rhythm Respiratory: no respiratory distress, no accessory muscle use Hand: Left, laceration (Fifth digit dorsal distal interphalangeal joint subcutaneous linear laceration approximately 2 cm length.) Procedures/Interventions Wound Location: Upper Extremities Other Wound Location Left hand fifth digit distal interphalangeal joint dorsally Wound Length (cm): 2 Wound's Depth, Shape: linear Wound Explored: clean Irrigated w/ Saline (ccs): 50 Betadine Prep?: Yes (Chlorhexidine) Anesthesia: 1% Lidocaine Volume Anesthetic (ccs): 1 Wound Debrided: minimal Suture: Ethlion Suture Size: 5-0 Number of Sutures: 3 Layer Closure?: 1 Number Deep Layer Sutures: 0 Sterile Dressing Applied?: Yes Progress/Results/Core Measures Results/Orders My Orders Orders - LAKESHA PYLE Lidocaine 1% Inj 10 Ml (Xylocaine 1% Inj (02/04/22 21:30) Dipht,Pertuss(Acell),Tet Adult (Boostrix (02/04/22 21:30) Medications Given in ED Current Medications Medications Dose Ordered Sig/Heather Route Start Time Stop Time Status Last Admin Dose Admin Diphtheria/ Tetanus/Acell Pertussis 0.5 ml ONCE ONCE IM 02/04/22 21:30 02/04/22 21:31 DC 02/04/22 21:34 0.5 ML Lidocaine HCl 10 ml ONCE ONCE INJ 02/04/22 21:30 02/04/22 21:31 DC 02/04/22 21:37 10 ML Vital Signs/I&O 02/04/22 21:01 Temp 36.2 Pulse 79 Resp 18 B/P (MAP) 104/69 (81) Pulse Ox 99 O2 Delivery Room Air Blood Pressure Mean: 81 Departure Impression Primary Impression: Laceration of finger of left hand Qualified Codes: S61.217A - Laceration without foreign body of left little finger without damage to nail, initial encounter Disposition: 01 HOME, SELF-CARE Condition: Stable Departure-Patient Inst. Decision time for Depature: 21:47 Referrals: [facility] (PCP/Family) Primary Care Physician Patient Instructions: Laceration Repair With Stitches (DC) Add. Discharge Instructions: Keep the wound clean with regular soap and water, body wash, shampoo etc. It is okay to run it under running water such as from the sink or shower. Do not submerse your hand until the sutures come out. Keep the wound clean and dry. It is okay to dress the stitches with some Vaseline to keep them from sticking to the dressing. Change the dressing daily or more frequently if they become soiled. Tylenol and ibuprofen as necessary for pain. Return to the ER in 7 to 10 days to have the sutures removed. Cephalexin 1 capsule 3 times a day to prevent infection. All discharge instructions reviewed with patient and/or family. Voiced understanding. Scripts Cephalexin (Cephalexin) 500 Mg Capsule 500 MG PO TID for 3 Days, #9 CAP 0 Refills Prov: LAKESHA PYLE 02/04/22 Work/School Note: Work Release Form Date Seen in the Emergency Department: Feb 04, 2022 Return to Work: Feb 05, 2022 Restrictions: Need Release from Doctor Other Restrictions Listed Below: Do not submerse the left hand until the sutures come out. Restrictions: Keep the dressing clean and dry. LAKESHA PYLE Feb 04, 2022 21:33
[2022-02-04 21:56] VITALS: BP 104/69
== END 2022-02-04 21:56 | disposition home or self-care (01) ==
LOC: EDUNIT# 20:55 → ER 20:58
DX: S61.217A Laceration without foreign body of left little finger without damage to nail, initial encounter (principal); F17.290 Nicotine dependence, other tobacco product, uncomplicated; Z23 Encounter for immunization; Z28.311 Partially vaccinated for COVID-19; W26.8XXA Contact with other sharp object(s), not elsewhere classified, initial encounter
CPT/HCPCS: 12001; 90715

== ENCOUNTER 2022-02-10 17:38 | Emergency (ER) | payer SELFPAY ==
[~2022-02-10] VITALS: Ht 165 cm; Wt 57.2 kg
[~2022-02-10 17:38] MED LIST changes: +CEPH500C PO
[2022-02-10 17:40] VITALS: BP 114/72
== END 2022-02-10 17:45 | disposition home or self-care (01) ==
LOC: EDUNIT# 17:38 → ER 17:40
DX: Z48.02 Encounter for removal of sutures (principal); Z28.310 Unvaccinated for COVID-19